=== PATIENT | male | born 1985 | race Hispanic/Latino ===

== ENCOUNTER → 2017-07-09 | Day surgery (SDC) | payer BC ==
[~2017-07-09] MED LIST: FENTANYL CITRATE/PF 100MCG/2 ML INJ ONE; HYOSCYAMINE SULFATE 0.5 MG/ML AMP ONE; LIDOCAINE HCL 2% LOCAL INJ 5 ML SDV VIAL INJ ONE; MIDAZOLAM HCL 2 MG/2 ML VIAL ONE; OMEPRAZOLE40 MG PO; PROPOFOL IV EMULSION 10 MG/ML 50 ML VIAL ONE
--- NOTE | 2017-07-09 16:42 | Operative Report ---
DATE OF PROCEDURE: July 09, 2017 REFERRING PHYSICIAN: Dr. Rahul Dalton PROCEDURE PERFORMED: Esophagogastroduodenoscopy with biopsies and colonoscopy with polypectomy. INDICATIONS FOR ESOPHAGOGASTRODUODENOSCOPY: Acid reflux. INDICATIONS FOR COLONOSCOPY: Change in bowel habits. History of bright red blood per rectum. History of diverticulitis. MEDICATION: Patient was done under MAC. Please see anesthesiologist's note. PROCEDURE: With patient in the left lateral decubitus position, flexible fiberoptic Olympus gastroscope was introduced into the esophagus under direct visualization without any difficulty. Erosions were noted in the distal esophagus without active bleeding or stigmata of recent hemorrhage. The scope was then advanced with ease into the stomach traversing a small hiatal hernia. Mucosa overlying the antrum and the body revealed some diffuse erythema and mild to moderate edema and biopsies were obtained and sent to stain for H. pylori. Pylorus appeared to be of normal contour and shape. Was intubated with ease and the scope was advanced all the way to the 2nd portion of the duodenum. The scope was then withdrawn slowly. Mucosa overlying the proximal 2nd portion and the duodenal bulb appeared to be within normal limits. The scope was then withdrawn back into the stomach and retroflexed and mucosa overlying the fundus appeared to be within normal limits. The previously described hiatal hernia was also noted in the retroflexed position. The scope was then straightened out. It was subsequently withdrawn. Patient tolerated the procedure well. IMPRESSION: 1. Erosive esophagitis. 2. Small hiatal hernia. 3. Gastritis biopsied. Biopsy sent to stain for H. pylori. PLAN: Follow up histology. Initiate Protonix 40 mg 1 p.o. q.a.m. a.c. PROCEDURE: Patient was then turned around and after adequate lubrication of the anal canal, a flexible fiberoptic Olympus colonoscope was inserted into the rectum with ease and advanced all the way to the cecum. The cecum and ascending colon were suboptimally prepped with retained stools, but whatever was visualized of the mucosa overlying the cecum appeared to be within normal limits. One polyp was snared from the ascending colon. The transverse and descending grossly appeared to be within normal limits. Diverticular disease was noted to involve the sigmoid colon. The rectum appeared to be within normal limits. The scope was then retroflexed into the distal rectum. Small internal hemorrhoids were noted, none of which was actively bleeding. The scope was then straightened out. It was subsequently withdrawn. Patient tolerated the procedure well. IMPRESSION 1. Suboptimal prep, right colon. 2. Ascending colon polyp, snared. 3. Diverticulosis. 4. Internal hemorrhoids, none actively bleeding. PLAN: Followup histology. Initiate high-fiber, low-fat diet. Initiate high-fiber supplement. The patient will need a followup colonoscopy in 3 years. Job#: [id number] cc:RAHUL DALTON DO
== END | disposition home or self-care (01) ==
LOC: OR 11:53
PROVIDERS: ATTEND Internal Medicine Gastroenterology
DX: K29.70 Gastritis, unspecified, without bleeding (principal); D12.2 Benign neoplasm of ascending colon; K22.10 Ulcer of esophagus without bleeding; K44.9 Diaphragmatic hernia without obstruction or gangrene; K21.9 Gastro-esophageal reflux disease without esophagitis; K57.30 Diverticulosis of large intestine without perforation or abscess without bleeding; K59.00 Constipation, unspecified; K64.8 Other hemorrhoids; K62.5 Hemorrhage of anus and rectum; R03.0 Elevated blood-pressure reading, without diagnosis of hypertension; F17.290 Nicotine dependence, other tobacco product, uncomplicated; Z68.39 Body mass index [BMI] 39.0-39.9, adult
CPT/HCPCS: 43239; 45385; J1980; J2001; J2250